=== PATIENT | male | born 1970 | race Caucasian/White ===

== ENCOUNTER 2017-07-25 08:32 | Emergency (ER) | payer SELFPAY ==
--- NOTE | 2017-07-25 08:43 | ED Physician Documentation ---
Sore Throat/Dental Pain - HISTORIAN Historian: patient - HPI Stated Complaint: dental pain Chief Complaint: Dental Pain Onset: other (2 months ) Context: Fractured Tooth, Dental Caries, Other Associated Symptoms: other (pain for over 2 months) Further Comments: yes (Dental pain for 2 months due to a broken tooth or possibly a missing cap. He denies any fever. He has tried OTC meds with mild relief . He has not seen a dentist in a few years) - ROS CONST: no problems - PAST HX Past History: none Immunizations: UTD Allergies/Adverse Reactions: Allergies Allergy/AdvReac Type Severity Reaction Status Date / Time No Known Allergies Allergy Verified 07/25/17 08:42 Home Medications: Ambulatory Orders Medication Instructions Recorded NK [NK] 07/25/17 - SOCIAL HX Smoking History: non-smoker Alcohol Use: none Drug Use: none - FAMILY HX Family History: No - REVIEWED ASSESSMENTS Nursing Assessment Reviewed: Yes Vitals Reviewed: Yes Dental Pain Physical Exam - EXAM General Appearance: no acute distress, other (sleeping in room ) Eyes: eyes nml inspection Mouth/Throat: other (obvious dental caries. right lower tooth with broken pieces. Small amount of yellow drainge ) Respiratory: no resp. distress, breath sounds nml, respiratory distress CVS: reg. rate & rhythm, heart sounds nml Abdomen: soft Extremities: non-tender Skin: warm/dry, normal color Neuro/Psych: No: weakness, numbness, anxiety, depression Discharge Clincal Impression: Pain, dental Referrals: Primary Doctor,No [Primary Care Provider] - 2 Days Comments: Amoxicillin 875 mg BID x 10 days Ibuprofen 800 mg BID as needed for pain Warm salt water gargles Tea bag to pain area See Dentist return to ER or PCP for any concerns Condition: Stable Disposition: HOME, SELF-CARE Decision to Admit: NO Date of Decison to Admit: 07/25/17 Decision Time: 08:50
[2017-07-25 08:46] VITALS: BP 130/51
== END 2017-07-25 08:59 | disposition home or self-care (01) ==
LOC: ED 08:32
DX: K02.9 Dental caries, unspecified (principal)
CPT/HCPCS: 99282